=== PATIENT | male | born 1930 | race Caucasian/White ===

== ENCOUNTER 2016-10-06 07:48 | Emergency (ER) | payer OTHER, BC ==
[~2016-10-06] VITALS: Ht 177.8 cm; Wt 81.9 kg
[~2016-10-06 07:48] MED LIST: ACID CONTROL150 MG PO; ALPRAZOLAM0.5 MG PO; AMIODARONE HCL400 MG PO; ASCORBIC ACID500 M3 PO; ASPIRIN325 MG PO; ASPIRIN81 M2 PO; CARAFATE1 GM PO; COMBIVENT RESPIM4 GM IH; CRESTOR10 MG PO; DOCUSATE SODIU100 MG PO; FOLIC ACID1 MG PO; HYDROCODON-ACE1 EACH PO; HYDROCORTISON28.4 GM TP; KETOCONAZOLE60 GM TP; LASIX40 MG PO; METOPROLOL TART25 MG PO; MIRALAX17 GM PO; NON-ASPIRIN PA325 MG PO; SENNA-TIME S T1 EACH PO; THERAGRAN1 TABLET PO; TOPROL XL50 MG PO; VERAPAMIL HCL120 MG PO
[2016-10-06] MEDS ORDERED: MIRTAZAPINE30 MG PO (08:25)
[2016-10-06] MEDS ORDERED: REQUIP0.5 MG PO (08:25)
[2016-10-06] MEDS ORDERED: ARICEPT10 MG PO (08:26)
[2016-10-06] MEDS ORDERED: MELATONIN5 MG SL (08:26)
[2016-10-06] MEDS ORDERED: ABILIFY2 MG PO (08:27)
[2016-10-06 10:49] VITALS: BP 106/64
== END 2016-10-06 10:50 | disposition home or self-care (01) ==
LOC: EME 07:48
DX: S80.01XA Contusion of right knee, initial encounter (principal); M25.461 Effusion, right knee; W10.8XXA Fall (on) (from) other stairs and steps, initial encounter; I10 Essential (primary) hypertension; K21.9 Gastro-esophageal reflux disease without esophagitis; Z95.1 Presence of aortocoronary bypass graft; Z95.2 Presence of prosthetic heart valve; Z87.891 Personal history of nicotine dependence
CPT/HCPCS: 73564; 99281; 99284

== ENCOUNTER 2017-11-03 22:03 | Emergency (ER) | payer OTHER, BC ==
[~2017-11-03] VITALS: Ht 182.9 cm; Wt 88.9 kg
[~2017-11-03 22:03] MED LIST changes: +ABILIFY2 MG PO; +ARICEPT10 MG PO; +MELATONIN5 MG SL; +MIRTAZAPINE30 MG PO; +REQUIP0.5 MG PO
[2017-11-04 01:05] VITALS: BP 116/59
== END 2017-11-04 01:05 ==
LOC: EME → EDBD 22:03 → EDSEX 22:03 → EME 22:03
DX: S80.01XA Contusion of right knee, initial encounter (principal); S80.02XA Contusion of left knee, initial encounter; S50.01XA Contusion of right elbow, initial encounter; W05.0XXA Fall from non-moving wheelchair, initial encounter; Y93.89 Activity, other specified; Y92.129 Unspecified place in nursing home as the place of occurrence of the external cause; I11.0 Hypertensive heart disease with heart failure; I50.9 Heart failure, unspecified; K21.9 Gastro-esophageal reflux disease without esophagitis; F41.9 Anxiety disorder, unspecified; Z95.1 Presence of aortocoronary bypass graft; Z95.2 Presence of prosthetic heart valve; Z87.891 Personal history of nicotine dependence; Z79.82 Long term (current) use of aspirin
CPT/HCPCS: 73080; 73564; 99281; 99284